=== PATIENT | female | born 1945 | race Caucasian/White ===

== ENCOUNTER → 2019-11-04 | Outpatient (CLI) | payer OTHER, MEDICAID ==
[~2019-11-04] MED LIST: EYE DROPS FOR GLAUCO; HORMONE REPLACEMENT
== END ==
LOC: M.CT 10:41
DX: R19.00 Intra-abdominal and pelvic swelling, mass and lump, unspecified site (principal); I70.0 Atherosclerosis of aorta; R19.5 Other fecal abnormalities; M25.78 Osteophyte, vertebrae